=== PATIENT | male | born 1950 | race Caucasian/White ===

== ENCOUNTER 2017-11-17 10:47 | Day surgery (SDC) | payer MEDICARE ==
[~2017-11-17] VITALS: Ht 177.8 cm; Wt 77.6 kg
[~2017-11-17 10:47] MED LIST: METH750T2 PO; PRED20 PO
[2017-11-17] MEDS ORDERED: IOHEXOL 350 MG/ML 100 ML BTL (for Cath Lab) OTHER ONE (10:48)
[2017-11-17 11:18] VITALS: BP 110/82; PULSE 58; RESP 19; TEMP 97; O2SAT 99
[2017-11-17] MEDS ORDERED: METO25TA3 PO (11:22)
[2017-11-17] MEDS ORDERED: TAMS0.4C4 PO (11:22)
[2017-11-17 11:28] LABS: AUTOMATED NEUTROPHIL # 4.6 TH/MM3 (1.8-7.7); BASOPHIL % 0.3 % (0.0-2.0); EOSINOPHIL # 0.2 TH/MM3 (0-0.4); HEMATOCRIT 46.9 % (39.0-51.0); HEMOGLOBIN 15.9 GM/DL (13.0-17.0); LYMPH % 32.2 % (9.0-44.0); LYMPHOCYTE # 2.6 TH/MM3 (1.0-4.8); MEAN CELL VOLUME 92.7 FL (80.0-100.0); MEAN CORPUSCULAR HEMOGLOBIN 31.4 PG (27.0-34.0); MEAN CORPUSCULAR HGB CONC 33.9 % (32.0-36.0); MEAN PLATELET VOLUME 8.6 FL (7.0-11.0); MONO % 9.8 % (0.0-8.0); MONOCYTE # 0.8 TH/MM3 (0-0.9); NEUT % 55.7 % (16.0-70.0); PLATELET COUNT 183 TH/MM3 (150-450); RED BLOOD COUNT 5.06 MIL/MM3 (4.50-5.90); RED CELL DISTRIBUTION WIDTH 13.3 % (11.6-17.2); WHITE BLOOD COUNT 8.2 TH/MM3 (4.0-11.0)
[2017-11-17 11:45] LABS: BICARBONATE 28.7 MEQ/L (21.0-32.0); CALCIUM 8.2 MG/DL (8.5-10.1); CREATININE 1.03 MG/DL (0.60-1.30)
[2017-11-17 11:46] LABS: PROTHROMBIN TIME - PATIENT 10.5 SEC (9.8-11.6)
[2017-11-17] MEDS ORDERED: NS 1000P @30 MLS/HR (KVO) IV SCH (12:15)
[2017-11-17] MEDS ORDERED: MIDAZOLAM HCL 5 MG/5 ML VIAL ONE (13:44)
[2017-11-17] MEDS ORDERED: HEPARIN-NS/PF INJ 1,000 ML ONE (13:44)
--- NOTE | 2017-11-17 15:10 | CATHPROC ---
[employer] HIS Report Study Information Study Number Admission Scheduled Start Study Start [id number] Nov 17 2017 10:47AM 11/17/2017 Nov 17 2017 1:14PM [place] [facility] Cardiac Catheterization Admit Source Facility Department Other [facility] Physician and Clinical Staff Initial Keith Hurd Nursing Techemily Delgado RN, Joe Nursing TechSimona Madsen BSN Other Wade Escalera,RN Other Nory Conklin,RT(R) Recorder Meena Haider,RT(R) (BS) Josemanuel SotoRT(R) Procedures Performed Procedure Location (Site) Vessel Name Angiogram LV LV Ventricle Coronary Angiograms LCA Left Coronary Coronary Angiograms RCA Right Coronary L Heart Cath Equipment Time Shearing Machine Operator Description Size Mfg Part Number Used/Scraped TRANSDUCER, TRMezmerizAVE [id number] 13:52 Inbilin TENORIO * Used W/STOCKCOCK *[id number] 14:48 QXL [employer] MEDICAL VASCADE, FR5 CLOSURE SYSTEM FR 5 Used *[id number] [id number] *[id number] 534-520T *[id number] [id number] *[id number] 13:52 MEDLINE [employer] PACK, CCL CUSTOM * Used *[id number] 13:52 [employer] PACER PEN, SKIN DUAL W/ RULER * Used *[id number] 13:52 Foodyn WIRE, 3MMJ .035 180CM 180CM Used *[id number] PROBE COVER, STERILE [id number] 13:52 Atmosferiq * Used ULTRASOUND W/ GEL *[id number] 13:52 NAMIC MANIFOLD, 4 PORT * Used *[id number] 13:52 NAMIC TUBING, HIGH PRESSURE 48" 48" Used *[id number] 13:52 NYCOMED OMNIPAQUE, 350 MG, 150ML 150ML [id number] Used [id number] 13:52 LIN MEDICAL BLANKET,WARM AIR CCL * Used *[id number] 13:52 [employer] MEDICAL SHEATH, FR5 TERUMO (10CM) FR 5 Used *[id number] History: Current Medications Medication Dosage/Unit Route Frequency Last Date/Time Taken Beta [place] History: Allergies Allergy Reaction penicillin G RASH History: Risk Factors Family History of Hypertension Dyslipidemia Previous PR Previous Heart Failure Premature CAD No Yes No No No Prior Valve Prior PCI Prior CABG Surgery No No No Cerebrovascular Peripheral Artery Chronic Lung On Dialysis Diabetes Disease Disease Disease No No No No No History: Stress Tests Stress or Imaging Studies Performed Yes Standard Exercise Stress Test No Stress Echo No Stress Test SPECT Stress Test SPECT Result Stress Test SPECT Ischemia Risk/Extent Yes Positive Intermediate Stress Test CMR No Cardiac CTA Coronary Calcium Score No No History: Other Current Smoker No Labs Hgb (g/dl) Hct (%) WBC (l/cumm) Platelets (thousands) 11.60-17.00 35.00-51.00 4.00-11.00 150.00-450.00 15.9 46.9 8.2 183 Glucose (mg/dl) BUN (mg/dl) Creatinine (mg/dl) BUN:Creatinine (1:x) 74.00-106.00 7.00-18.00 0.50-1.30 10.00-20.00 88 18 1.0 18 Na (meq/l) K (meq/l) 136.00-145.00 3.50-5.10 141 4.3 INR (PTT:PT) 0.90-1.10 1 CPK-MB (ng/ML) 0.50-3.60 Not Drawn Medication Medication Total Dose (Bolus/Oral) Medication Total Dosage/Unit 1% XYLOCAINE 20 mL FENTANYL 50 mcg OXYGEN 2 l/min VERSED 2 mg Medications (Bolus/Oral) Medication Time Given Dosage/Unit Administered By Reason VERSED 11/17/2017 2:26:16 PM 2 mg Wade Escalera 2 mg VERSED given in lab by Wade Escalera RN in Left Antecubital via Peripheral IV. FENTANYL 11/17/2017 2:26:24 PM 50 mcg Wade Escalera 50 mcg FENTANYL given in lab by Wade Escalera RN in Left Antecubital via Peripheral IV. 1% XYLOCAINE 11/17/2017 2:28:38 PM 20 mL Keith Brandt 20 mL 1% XYLOCAINE given in lab by Keith Brandt in Right Groin via Subcutaneous. OXYGEN 11/17/2017 2:29:40 PM 2 l/min Wade Escalera 2 l/min OXYGEN given in lab by Wade Escalera, TUNG via Nasal. Medication (Drip) Medication Time Given Dosage/Unit Concentration/Unit Diluent (ml) Solution IV Solutions 11/17/2017 1:41:48 PM 0 mL (IV) 500 NaCl .9 IV Solutions given in lab by Joe Delgado RN in Left Antecubital via Peripheral IV. Pump/Drip Flow = 30 ml/hr using NaCl .9. Initial Case Assessment Cardiovascular HR Rhythm NIBP Chest Pain 58 reg 134/113 0 Edema Present Skin color Skin None Normal Warm Dry Circulatory - Right Pulses Dorsalis Pedis Femoral 1 2 Scale (0,1,2,3,4,d) Circulatory - Left Pulses Dorsalis Pedis Femoral 2 2 Scale (0,1,2,3,4,d) Circulatory - Lower Extremities Color Lower Right Color Lower Left Normal Normal Neurological State Oriented to time-place- Alert Moves all extremities person Respiration - General Respiration Rate SpO2 (%) (B/min) 10 96 Chronological Log Time Study Chronological Log 13:41:20 Patient arrived via Bed. 13:41:21 Patient Name, D.O.B, / Armband Verified By R.N. 13:41:24 Consent signed by the physician and the patient and verified by the [facility] staff. 13:41:25 Pre-op and post- op instructions given; patient acknowledges understanding of instructions. 13:41:26 Verbal Stimulation=2 Physical Stimulation=2 Airway=2 Respiration=2 TOTAL=8. (0=absent, 1=li mited, 2=present) 13:41:30 Presedation assessment performed by [facility] RN. 13:41:37 Disposable Defibrillator Pads Placed On Patient. 13:41:39 Patient has been NPO for More than 6Hrs. 13:41:40 Skin Breakdown none per pt 13:41:41 Patient Warmer Placed on the Table. 13:41:46 Myra Prominences Protected 13:41:47 A # 20 IV was noted in the Antecubital (left). Grade = 0 IV Solutions given in lab by Joe Delgado RN in Left Antecubital via Peripheral IV. Pump/Drip F low = 30 ml/hr using NaCl 13:41:48 .9. 13:41:49 History and physical on the chart or being dictated. Assessment: Initial Case, HR=58 BPM, Rhythm=reg, XMDF=270/113 mmhg, Chest Pain=0, Edema=None, Color=Normal, Skin = Warm, Dry Right Pulses: Ambrose Ped=1, Femoral=2 Left Pulses: Ambrose Ped=2, Femoral=2 13:41:49 Lower Right Extremities: Color=Normal Lower Left Extremities: Color=Normal Neurological: State=Alert, Ox3, CHAUDHARY Respiration: Resp=10 B/min, SpO2=96 % Vitals capture started with the following parameters, Patient=Adult, Interval=5 min, Initial Pr xlbazk=271 mmHg, 13:44:46 Deflation Rate=5 mmHg, Cuff placed on Left Arm 13:45:26 FHFH=618/113 mmhg, SpO2=95.0 %, Pain=0, Nathan=10, Gonzalez=2 13:48:22 Reference ECG taken 13:50:20 HR=54 bpm, HQAS=379/85 mmhg, SpO2=97.0 %, Resp=12 B/min, Pain=0, Nathan=10, Gonzalez=2 13:53:29 Bilateral groins prepped with 2% chlorhexidine, and draped after a 3 minute waiting time. 13:56:35 HR=53 bpm, DGDP=791/80 mmhg, SpO2=98.0 %, Resp=12 B/min, Pain=0, Nathan=10, Gonzalez=2 13:59:38 MD paged 14:00:21 HR=71 bpm, ETVD=720/79 mmhg, SpO2=96.0 %, Resp=8 B/min, Pain=0, Nathan=10, Gonzalez=2 14:01:19 MD responded 14:01:24 Pressure channel 1 zeroed. 14:05:18 HR=70 bpm, DJYR=211/90 mmhg, SpO2=97.0 %, Resp=8 B/min, Pain=0, Nathan=10, Gonzalez=2 14:10:21 HR=58 bpm, DVON=888/85 mmhg, SpO2=97.0 %, Resp=6 B/min, Pain=0, Nathan=10, Gonzalez=2 14:15:48 HR=58 bpm, ODBW=154/83 mmhg, SpO2=97.0 %, Resp=17 B/min, Pain=0, Nathan=10, Gonzalez=2 14:16:28 MD arrived. 14:20:19 HR=63 bpm, QCIP=807/90 mmhg, SpO2=96.0 %, Resp=25 B/min, Pain=0, Nathan=10, Gonzalez=2 14:25:20 HR=79 bpm, SSFD=206/115 mmhg, SpO2=97.0 %, Resp=7 B/min, Pain=0, Nathan=10, Gonzalez=2 14:26:16 2 mg VERSED given in lab by Wade Escalera, TUNG in Left Antecubital via Peripheral IV. 14:26:24 50 mcg FENTANYL given in lab by Wade Escalera RN in Left Antecubital via Peripheral IV. Time Out. Correct patient, correct procedure, correct physician, power injector loaded, or not loaded with contrast with 14:28:09 surgical team present. Time Out Concurred by MD and individual staff in procedure. 14:28:33 Case Start 14:28:38 20 mL 1% XYLOCAINE given in lab by Keith Brandt in Right Groin via Subcutaneous. 14:29:40 2 l/min OXYGEN given in lab by Wade Escalera, TUNG via Nasal. 14:30:27 HR=56 bpm, GTSP=182/74 mmhg, SpO2=94.0 %, Resp=24 B/min, Pain=0, Nathan=10, Gonzalez=2 14:30:51 Access site was Right Femoral Artery using ultrasound 14:31:04 A SHEATH, FR5 TERUMO (10CM) FR 5 was advanced into the Fem Art (right) using the Percutaneo us technique. A PIGTAIL ANG. INFINITI CATHETER FR 5 was advanced over a wire. OMNIPAQUE, 350 MG, 150ML 150ML was used 14:31:48 for injections. Recorded Pressure: LV, HR=69, Condition=Condition 1 14:35:02 (Left Ventricle) LV 105/2/9 14:35:24 HR=71 bpm, KMZM=337/67 mmhg, SpO2=96.0 %, Resp=14 B/min, Pain=0, Nathan=10, Gonzalez=2 14:35:26 The LV was injected at 10 cc/sec for a total of 30. OMNIPAQUE, 350 MG, 150ML 150ML used. Recorded Pressure: LV, Ao, HR=67, Condition=Condition 1 14:36:45 (Left Ventricle) LV 94/-2/3, (Aorta) Ao 97/45/73 14:37:06 Catheter was removed A JL 4.0 INFINITI CATHETER FR 5 was advanced over a wire. OMNIPAQUE, 350 MG, 150ML 150ML was us ed for 14:37:07 injections. 14:38:36 The LCA was injected and visualized at various angles. OMNIPAQUE, 350 MG, 150ML 150ML use d. Recorded Pressure: Ao, HR=68, Condition=Condition 1 14:39:16 (Aorta) Ao 95/54/76 14:40:21 HR=66 bpm, DNJN=554/65 mmhg, SpO2=97.0 %, Resp=11 B/min, Pain=0, Nathan=10, Gonzalez=2 14:40:58 Catheter was removed A AR MOD INFINITI CATHETER FR 5 was advanced over a wire. OMNIPAQUE, 350 MG, 150ML 150ML was u sed for 14:40:59 injections. 14:41:41 The RCA was injected and visualized at various angles. OMNIPAQUE, 350 MG, 150ML 150ML use d. Recorded Pressure: Ao, HR=63, Condition=Condition 1 14:42:11 (Aorta) Ao 112/63/85 14:42:28 Catheter was removed 14:42:45 Case End 14:45:20 HR=66 bpm, QDWT=471/81 mmhg, SpO2=98.0 %, Resp=13 B/min, Pain=0, Nathan=10, Gonzalez=2 14:45:38 An injection in the Fem Art (right) was made through the SHEATH, FR5 TERUMO (10CM) FR 5. 14:49:12 Called DOCU. Spoke to Malinda. 14:50:17 VASCADE, FR5 CLOSURE SYSTEM FR 5 placement in the Fem Art (right) 14:50:25 HR=58 bpm, IJHL=597/83 mmhg, SpO2=99.0 %, Resp=11 B/min, Pain=0, Nathan=10, Gonzalez=2 14:51:00 Catheter(s) removed without difficulty 14:51:05 No case complications noted. 14:51:11 Implantable Device card placed in patient's chart. 14:51:14 Bedside Report will be given. 14:51:19 A Left Heart Cath was performed. 14:55:26 HR=64 bpm, OJJB=124/76 mmhg, SpO2=99.0 %, Resp=16 B/min, Pain=0, Nathan=10, Gonzalez=2 14:56:14 Sterile dressing applied to site 14:58:56 Patient moved to stretcher 15:00:12 Vitals capture stopped. End Study - Contrast Media Used In Study Contrast Total Opened (mL) Total Used (mL) Total Wasted (mL) Omnipaque 80 80 0 End Study - Maximum Contrast Load Max Contrast Load (mL) 388.0 End Study - Radiation Exposure Fluoro Time (minutes) 1.9 End Study - Sheaths Sheaths Pulled By Sheath Hold Time (min) Nory Conklin End Study - Patient Disposition Complications Transferred To Interventional Outcome No [facility] Holding No attempt made
--- NOTE | 2017-11-17 15:16 | EKG ---
Date Performed: 11/17/2017 Time Performed: 11:24:00 PTAGE: 67 years EKG: Baseline artifact present Sinus rhythm . Inferior infarct - age undetermined Abnormal ECG I would repeat the EKG given the marked artifact. NO PREVIOUS TRACING DOCTOR: Geoff León Interpretating Date/Time 11/17/2017 15:15:49
--- NOTE | 2017-11-18 08:51 | MA ---
cc: KEITH BRANDT DATE: 11/17/2017 INDICATION Nonsustained VT, abnormal EKG, intermediate probability nuclear myocardial perfusion study. PROCEDURE PERFORMED 1. Retrograde heart catheterization with left ventriculography and selective coronary angiography. 2. Moderate sedation. ACCESS SITE Right femoral artery. EQUIPMENT USED 5-Ukrainian pigtail catheter, 5-Ukrainian JL-4 and AR modified coronary artery catheters. MEDICATIONS Versed IV, Fentanyl IV. CONTRAST Omnipaque 80 ccs. COMPLICATIONS None. BLOOD LOSS Less than 10 ccs. METHOD OF HEMOSTASIS Vascade closure. RESULTS HEMODYNAMICS Heart rate 55 beats per minute, left ventricular end-diastolic pressure 4 mmHg, left ventricle 105/4, aorta 105/63/85. Left ventricular ejection fraction 55%. Wall motion normal. No mitral regurgitation. CORONARY ANGIOGRAPHY Left main coronary artery is patent. Left anterior descending artery is patent. First diagonal is patent. Second diagonal artery has 50% proximal stenosis. Left circumflex artery is patent. OM1 patent. Ramus intermedius patent. Right coronary is a dominant vessel which is patent. PDA patent, PLV patent. DIAGNOSIS 1. Mild to moderate nonobstructive coronary artery disease. 2. Preserved left ventricular systolic function. DISPOSITION Mr. Cordova can be reassured of his cardiac status. His study reveals mild to moderate nonobstructive coronary disease and preserved ventricular systolic function. I recommend to continue his current medical program. I recommend to continue risk factor modification. He will also be seen back for followup in our office after discharge. Keith Brandt MD [place]/TLL /3:08 PM /8:20 AM
== END 2017-11-17 17:15 | disposition home or self-care (01) ==
LOC: HCAT 10:47 → HDIC 10:48 → HCAT 17:15
PROVIDERS: ATTEND Internal Medicine Interventional Cardiology
DX: I25.10 Atherosclerotic heart disease of native coronary artery without angina pectoris (principal); I47.2 Ventricular tachycardia
CPT/HCPCS: 80048; 85025; 85610; 85730; 93005; 93458; 99152; 99153; C1760; C1769; C1893; G0269; J1644; J2250; J3010; Q9967